=== PATIENT | female | born 1960 | race Caucasian/White ===

== ENCOUNTER → 2016-08-30 | Outpatient (CLI) | payer BC ==
[~2016-08-30] MED LIST: ADIPEX-P37.5 MG PO; COSAMIN DS 4001 TAB PO; HCTZ 25MG TAB25 MG PO; HUMIRA40 MG/0.8 SQ; MELATONIN3 M1; NORVASC 5MG5 MG/TAB PO
== END ==
LOC: COL.RAD 08:00
DX: M79.672 Pain in left foot (principal)
CPT/HCPCS: J3301; Q9967

== ENCOUNTER 2016-09-06 19:57 | Emergency (ER) | payer BC ==
[~2016-09-06] VITALS: Ht 167.6 cm; Wt 83.6 kg
[2016-09-06 19:59] VITALS: TEMP 98.3
[2016-09-06 20:36] LABS: BASO % 0.4 % (0.0-2.0); EOS # 0.1 (0.0-0.7); EOS % 0.8 % (0-4.0); GRAN % 66.1 % (42.2-75.2); HEMATOCRIT 44.8 % (37.0-47.0); HEMOGLOBIN 15.5 g/dl (12.5-16.0); LYMPH # 1.8 (1.2-3.4); MEAN CELL VOLUME 87 fl (80.0-100.0); MEAN CORPUSCULAR HEMOGLOBIN 30 pg (27.0-31.0); MEAN CORPUSCULAR HGB CONC 35 g/dl (33.0-37.0); MEAN PLATELET VOLUME 10.5 fl (7.4-10.4); MONO # 0.6 (0.1-0.6); MONO % 8.2 % (1.7-9.3); PLATELET COUNT 295 K/mm3 (130-400); RED BLOOD COUNT 5.14 M/mm3 (4.10-5.30); REDCELL DISTRIBUTION WIDTH-CV 13.3 % (11.5-14.5); WHITE BLOOD COUNT 7.6 K/mm3 (4.8-10.8)
[2016-09-06 20:47] LABS: ADJUSTED CALCIUM 9.3 mg/dL (8.4-10.2); ALANINE AMINOTRANSFERASE 35 U/L (9-52); ALBUMIN 4.8 gm/dL (3.5-5.0); ALKALINE PHOSPHATASE 80 U/L (50-136); ANION GAP 14 mmol/L (7-16); BILIRUBIN,TOTAL 0.9 mg/dL (0.0-1.0); BLOOD UREA NITROGEN 35 mg/dL (7-17); CALCIUM 9.9 mg/dL (8.4-10.2); CARBON DIOXIDE 29 mmol/L (22-30); CHLORIDE 94 mmol/L (98-107); CREATININE, serum 1.23 mg/dL (0.52-1.25); GLUCOSE 104 mg/dL (74-106); LIPASE 240 U/L (23-300); POTASSIUM 3.8 mmol/L (3.4-5.0); SODIUM 137 mmol/L (137-145); TOTAL PROTEIN 8.2 gm/dL (6.4-8.2)
[2016-09-06 20:53] LABS: C-REACTIVE PROTEIN < 0.5 mg/dL (0.0-0.9)
[2016-09-06 20:56] LABS: B-TYPE NATRIURETIC PEPTIDE 43 pg/mL (0-125)
[2016-09-06 21:01] LABS: ERYTHROCYTE SEDIMENTATION RATE 5 mm/hr (0-30)
[2016-09-06 21:02] LABS: TROPONIN-I < 0.012 ng/mL (0.000-0.034)
[2016-09-06] MEDS ORDERED: HCTZ 25MG TAB25 MG PO (21:08)
[2016-09-06] MEDS ORDERED: HUMIRA40 MG/0.8 SQ (21:09)
[2016-09-06] MEDS ORDERED: NORVASC 5MG5 MG/TAB PO (21:09)
[2016-09-06] MEDS ORDERED: COSAMIN DS 4001 TAB PO (21:09)
[2016-09-06] MEDS ORDERED: MELATONIN3 M1 (21:10)
[2016-09-06] MEDS ORDERED: ADIPEX-P37.5 MG PO (21:10)
[2016-09-06 22:22] LABS: PH 5 (5-8); SQUAMOUS EPITHELIAL 0-2 /hpf; URINE APPEARANCE Clear; URINE BACTERIA None Seen /hpf; URINE BILIRUBIN Negative (NEGATIVE); URINE BLOOD Negative (NEGATIVE); URINE COLOR Yellow; URINE GLUCOSE Negative (NEGATIVE); URINE KETONE Negative (NEGATIVE); URINE RBC 0-2 /hpf; URINE UROBILINOGEN Negative (NEGATIVE)
[2016-09-06 22:49] VITALS: BP 144/79; PULSE 88
== END 2016-09-06 22:59 | disposition home or self-care (01) ==
LOC: COL.ER 19:57
PROVIDERS: Emergency Medicine
DX: T67.3XXA Heat exhaustion, anhydrotic, initial encounter (principal); E86.0 Dehydration; X30.XXXA Exposure to excessive natural heat, initial encounter; I10 Essential (primary) hypertension; L40.9 Psoriasis, unspecified
CPT/HCPCS: J2060; J2405; J7030

== ENCOUNTER → 2017-11-29 | Outpatient (CLI) | payer BC | LOC: COL.LAB 10:56 | DX: Z01.812 Encounter for preprocedural laboratory examination (principal) ==